=== PATIENT | male | born 1945 | race Caucasian/White ===

== ENCOUNTER 2023-06-30 09:19 | Outpatient (AMB) | payer MEDICARE, MEDICAID, SELFPAY ==
[2023-06-30 09:34] VITALS: BP 147/87; PULSE 78; RESP 14
--- NOTE | 2023-06-30 09:34 | A.OFFVIS_ITS ---
Intake Vital Signs 06/30/23 09:34 06/30/23 09:37 Height 6 ft 1 in Weight 154 lb BP 147/87 H Blood Pressure Location Lt brachial Position Sitting Respiration 14 Pulse 78 Pulse Source Pulse Oximeter Intake Visit Reasons: Lumbrosacral spondylosis without myelopathy Allergies No Known Allergies Allergy (Verified 06/30/23 09:37) Medication List - Last Reconciled 06/30/23 by Nilsa Paz LPN Unobtainable HPI Lumbrosacral spondylosis without myelopathy HPI Details 78-year-old male who presents today to t he office for an evaluation of mid and lower back pain radiating to his lumbar paraspinal and flank regions. His back and abdominal wall pain started after lumbar compression fractures at L2, L3, and L4. He underwent three levels of vertebroplasty at L2, L3, and L4 for vertebral compression fractures. The pain is in the right side of his lower back as well as the front of his belly. He rates his pain at 6/10 in intensity. Movements make the pain worse. Heat is minimally helpful. He had bilateral L4-5/L5-S1 lumbar facet injections on 05/22/23 that provided greater than 50% relief. He has difficulty sitting or lying down on the bed on the right side. He has not used braces in the past. He reports numbness in his feet and hands. He has difficulty driving his car. He reports feeling heaviness and weakness in his legs. He has muscle cramping in his hands. He has no history of diabetes mellitus. He had an MRI scan of his lumbar spine in the past, but the result is not available for review. [facility] Surgical History (Updated 07/01/23 @ 16:57 by Chi Thomas MD) History of total hip replacement Review of Systems Const All systems reviewed & are unremarkable except as noted in HPI and below Physical Exam Vital Signs: Last Vital Signs Pulse 78 06/30/23 09:34 Resp 14 06/30/23 09:34 BP 147/87 H 06/30/23 09:34 General: Appears afebrile. Alert and oriented. Mood and affect appropriate. Follows and participates in conversation appropriately. Respiratory effort is unlabored. Able to transition from sit to stand unassisted. Ambulates with bilaterally normal heel strike and toe off. While standing upright, his pelvis is shifted and slightly elevated on the right. There is tenderness to palpation in the lumbar spine and midback region. His gait is guarded. He appears unable to meaningfully extend or flex his back due to unsteadiness of his frame. Results Reviewed Results Reviewed: No imaging is available for review. Assessment & Plan Assessment & Plan (1) History of vertebral compression fracture: Code(s): Z87.81 - Personal history of (healed) traumatic fracture (2) Lumbar spondylosis: Code(s): M47.816 - Spondylosis without myelopathy or radiculopathy, lumbar region (3) Lumbar radiculitis: Code(s): M54.16 - Radiculopathy, lumbar region Plan I believe his pain is secondary to the alteration of his usual spine anatomy from his multiple lumbar compression fractures. Will schedule him for right L1-L2-L3 medial branch diagnostic blocks as a 1st step in his workup. Discussed the risks and benefits of the procedure with the patient in detail. All questions were answered. The patient is on board with the plan. Justification for interventional therapy: ? Patient with average pain > 6/10 ? Patient has exhausted conservative therapy ? Patient unable to tolerate physical therapy due to pain. I will also order LSO brace to help with and hopefully correct some of his crooked posture. The patient will receive a call for fitting from the company. The patient signed a release form today for his MRI scan result. Once we receive the MRI scan result, we will review it for further workup of his bilateral leg clumsiness. Scribed for Dr. Thomas by Jose Cruz Byrnes medical services assistant, on 06/30/2023. I, Dr. Thomas, have personally reviewed and agree with the information entered by the christiano sexton. Coding Level of Care Code New Pt Level 4 (45060) Diagnoses History of vertebral compression fracture Z87.81 Lumbar spondylosis M47.816 Lumbar radiculitis M54.16
== END 2023-06-30 10:30 | disposition home or self-care (01) ==
PROVIDERS: PCP Internal Medicine; Referring Provider Internal Medicine; Visit Provider Internal Medicine
DX: Z87.81 Personal history of (healed) traumatic fracture (principal); M47.816 Spondylosis without myelopathy or radiculopathy, lumbar region; M54.16 Radiculopathy, lumbar region
CPT/HCPCS: 99204

== ENCOUNTER → 2023-06-30 09:19 | Outpatient (BNVA) | payer MEDICARE, MEDICAID, SELFPAY | PROVIDERS: Visit Provider Internal Medicine | DX: M47.816 Spondylosis without myelopathy or radiculopathy, lumbar region (principal); M54.16 Radiculopathy, lumbar region; Z87.81 Personal history of (healed) traumatic fracture | CPT/HCPCS: 99202 ==